=== PATIENT | female | born 1935 | race Two or more races ===

== ENCOUNTER 2019-04-12 08:12 | Outpatient (CLI) | payer OTHER ==
[~2019-04-12 08:12] MED LIST: DIOVAN160 M1 PO
== END 2019-04-12 10:38 | disposition home or self-care (01) ==
LOC: RAD 08:12
DX: R10.2 Pelvic and perineal pain (principal); Z12.31 Encounter for screening mammogram for malignant neoplasm of breast; Z87.898 Personal history of other specified conditions; Z01.811 Encounter for preprocedural respiratory examination; N63.10 Unspecified lump in the right breast, unspecified quadrant; N63.20 Unspecified lump in the left breast, unspecified quadrant

== ENCOUNTER 2022-11-03 13:24 | Outpatient (CLI) | payer OTHER | END 2022-11-03 13:26 | disposition home or self-care (01) | LOC: RAD 13:24 | PROVIDERS: ATTEND Physical Medicine & Rehabilitation | DX: M25.552 Pain in left hip (principal); R10.2 Pelvic and perineal pain ==